=== PATIENT | female | born 1985 | race Caucasian/White ===

== ENCOUNTER 2016-12-19 10:53 | Emergency (ER) | payer MEDICAID, OTHER ==
[~2016-12-19] VITALS: Wt 65.9 kg
[2016-12-19] MEDS ORDERED: ACETAMINOPHEN 500 MG TAB PO STA (12:35)
[2016-12-19] MEDS ORDERED: ACET-141 PO (12:38)
[2016-12-19] MEDS ORDERED: CEPH-443 PO (12:38)
[2016-12-19] MEDS ORDERED: PHEN-538 PO (12:38)
--- NOTE | 2016-12-19 12:45 | ERD ---
ER Documentation Chief Complaint Chief Complaint dysuria w urinary frequency and pelvic pain HPI This 31-year-old female with dysuria worsening over the last week. She denies any fevers, vomiting, flank pain. She has mild suprapubic pain. She is taking Azo-Standard at home with some relief but the dysuria returns. She has a history of UTI and it feels similar previous episodes. ROS All systems reviewed and are negative except as per history of present illness. Medications Home Meds Active Scripts Acetaminophen* (Acetaminophen*) 500 MG Extra Strength Tablet, 500 MG PO Q4H Y for PAIN AND OR ELEVATED TEMP, #14 TAB Prov:IZA SOLIS MD 12/19/16 Phenazopyridine Hcl* (Pyridium*) 200 Mg Tab, 200 MG PO TID, #6 TAB Prov:IZA SOLIS MD 12/19/16 Cephalexin* (Keflex*) 500 Mg Capsule, 500 MG PO QID for 5 Days, CAP Prov:IZA SOLIS MD 12/19/16 PMhx/Soc Medical and Surgical Hx: pt denies Medical Hx, pt denies Surgical Hx Hx Alcohol Use: No Hx Substance Use: No Hx Tobacco Use: No Smoking Status: Never smoker Physical Exam Vitals Vital Signs Date Time Temp Pulse Resp B/P Pulse Ox O2 Delivery O2 Flow Rate FiO2 12/19/16 10:57 98.2 78 20 116/68 99 Physical Exam Const: [] Letter, [id number]. Head: Atraumatic Eyes: Normal Conjunctiva ENT: Normal External Ears, Nose and Mouth. Neck: Full range of motion..~ No meningismus. Resp: Clear to auscultation bilaterally Cardio: Regular rate and rhythm, no murmurs Abd: Soft, suprapubic tenderness. non distended. Normal bowel sounds Skin: No petechiae or rashes Back: No midline or flank tenderness Ext: No cyanosis, or edema Neur: Awake and alert Psych: Normal Mood and Affect Results 24 hrs Current Medications Medications (Trade) Dose Ordered Sig/Lela Route PRN Reason Start Time Stop Time Status Last Admin Dose Admin Cephalexin (Keflex) 500 mg ONCE ONCE PO 12/19/16 13:00 12/19/16 13:01 Acetaminophen (Tylenol Tab) 500 mg ONCE STAT PO 12/19/16 12:35 12/19/16 12:37 DC Phenazopyridine HCl (Pyridium) 200 mg ONCE ONCE PO 12/19/16 13:00 12/19/16 13:01 Procedures/MDM Chest positive leukocytes and findings consistent with urinary tract infection.. HCG is negative. Given Keflex. Tylenol here in the ED and will be treated with Keflex and Pyridium and instructions for fluids and return precautions at home. In signs and symptoms do not suggest tubo-ovarian abscess , PID, sepsis, acute abdomen, pyelonephritis. The patient was stable with no new complaints during the ER course. Clinically, there is no current evidence to suggest meningitis, sepsis, acute abdomen, pneumonia, acute coronary syndrome , pulmonary embolism, or any other emergent condition appearing to require further evaluation or hospitalization. The patient should certainly return for any new or worsening symptoms per the aftercare instructions. They should otherwise follow-up with her primary care doctor for reevaluation this week. Departure Diagnosis: Primary Impression: UTI (urinary tract infection) Urinary tract infection type: acute cystitis Hematuria presence: without hematuria Qualified Code: N30.00 - Acute cystitis without hematuria Additional Impression: Dysuria Condition: Stable Patient Instructions: Understanding Urinary Tract Infections (UTIs) Additional Instructions: Drink plenty of fluids at home. Return for fevers, vomiting, new or worsening symptoms. Urine shows infection and we will treat for this. IZA SOLIS MD Dec 19, 2016 12:45
[2016-12-19] MEDS ORDERED: CEPHALEXIN 500 MG CAP PO ONE (13:00)
[2016-12-19] MEDS ORDERED: PHENAZOPYRIDINE 100 MG TAB PO ONE (13:00)
== END 2016-12-19 13:16 | disposition home or self-care (01) ==
LOC: FTE 10:53
DX: N30.00 Acute cystitis without hematuria (principal)
CPT/HCPCS: 81003; Z7502; Z7610; 99283

== ENCOUNTER 2017-03-05 21:28 | Emergency (ER) | END 2017-03-05 23:54 | disposition home or self-care (01) ==